=== PATIENT | female | born 1930 | race African-American/Black ===

== ENCOUNTER 2018-12-10 21:07 | Observation (INO) ==
--- NOTE | 2018-12-10 21:50 | PROVIDER DOCUMENTATION ---
This chart was entered by Ivonne Stephens Scribe, acting as scribe for Terrell Adames MD. HPI-Musculoskeletal Pain/Inj - GENERAL Chief Complaint: Fall Stated Complaint: hip leg pain Time Seen by Provider: 12/10/18 21:32 - HX OF PRESENT ILLNESS-MUSKULOSKELTAL Nature of Presenting Problem: pt is 88/F presenting to ED w/ pain in L hip and leg after fall earlier. EMS brought pt in and sts that she has frequent falls and that she lives alone. Pt reports that she just loses her balance, that she does not have any other reason for falling. Pt has hx of HTN Quality of Pain: reports: aching Severity in ED: mild Onset/Duration: this morning Timing: still present Modifying Factors: improves with: nothing Any recent injury?: Yes (pt has fallen on several occasions in home) Locality of Occurance: Home Similar Symptoms Previously?: Yes Recently seen or treated by another doctor?: No - FALL INJURY Location of Pain/Injury: reports: lower extremity (L hip and leg) Pain Radiation: reports: no radiation Reason for Fall: reports: lost balance Symptoms prior to fall:: reports: none Loss of Consciousness: no loss of consciousness Injury Associated Symptoms: denies: back/neck pain, chest pain, dizziness, muscle aches, nausea, vomiting - LOWER EXTREMITY PAIN/INJURY Lower Extremities Pain: hip: left, leg: left Review of Systems - Adult - REVIEW OF SYSTEMS - ADULT Constitutional: reports: no symptoms reported. denies: chills, fever Eyes: reports: no symptoms reported Ears, Nose, Mouth & Throat: reports: no symptoms reported Cardiovascular: reports: no symptoms reported. denies: chest pain, edema Respiratory: reports: no symptoms reported. denies: cough, shortness of breath Gastrointestinal: reports: no symptoms reported. denies: abdominal pain, nausea , vomiting Genitourinary: reports: no symptoms reported Musculoskeletal: reports: no symptoms reported. denies: back pain, joint pain, joint swelling, muscle weakness, neck pain Integumentary: reports: no symptoms reported Neurological: reports: no symptoms reported. denies: dizziness/vertigo, headache/migraines Psychiatric: reports: no symptoms reported Endocrine: reports: no symptoms reported Hematologic/Lymphatic: reports: no symptoms reported Allergic/Immunologic: reports: no symptoms reported All Other Systems: Reviewed and Negative Past History - Adult - PAST MEDICAL HISTORY-ADULT Review of Records: reports: Old Records Reviewed, Nursing Assessment Review, Medications Reviewed, Social history reviewed & non-contributory. Major Childhood Illnesses: reports: denies history Cardiovascular: reports: HTN, hyperlipidemia Respiratory: reports: denies history Gastrointestinal: reports: denies history Obstetrical/Gynecological: reports: denies history Genitourinary: reports: denies history Musculoskeletal: reports: denies history Neurological: reports: denies history Psychiatric: reports: denies history Endocrine/Immune: reports: denies history Other Conditions: reports: denies history - PRIOR SURGERIES/PROCEDURES Surgical/Procedure History: reports: other (lymph node removal right breast) - IMMUNIZATION STATUS Childhood Immunizations: See Nurse Assessment Flu Vaccine: See Nurse Assessment - FAMILY HISTORY Family History: reviewed, not pertinent - SOCIAL HISTORY Smoking: denies, non-smoker Substance Use: none/never Alcohol Use Frequency: never Living Situation: alone Physical Exam-Injury Related - Physical Exam-Injury Related Initial Vital Signs Reviewed: Yes General Appearance: appears well, alert, no apparent distress Eyes: PERRL/EOMI Neck: non-tender, full range of motion, supple Respiratory: chest non-tender, lungs clear, normal breath sounds Cardiovascular: normal peripheral pulses, regular rate, rhythm, no edema Abdominal Exam: normal bowel sounds, non tender, soft Extremity: normal range of motion, normal gait, normal inspection, no pedal edema, no calf tenderness, normal capillary refill, tenderness (tenderness upon palpation in L hip and knee area) Integumentary: normal color, warm/dry, blanching Neurologic: grossly normal Psych/Mental Status: normal mood/affect, normal thought content, normal thought process, oriented x 3 - Glascow Coma Score Best Eye Response (Rj): (4) open spontaneously Best Verbal Response ([place]): (5) oriented Best Motor Response (Rj): (6) obeys commands Rj Total: 15 Progress - PLAN OF CARE/RESULTS Progress/Plan/Lab Results: Vital Signs - 8 hr 12/10/18 21:07 12/10/18 21:12 Temperature 97.6 F 97.6 F Pulse Rate 83 89 Respiratory Rate 20 20 Blood Pressure 189/91 189/91 O2 Sat by Pulse Oximetry 93 L Laboratory Results - last 24 hr 12/10/18 12/10/18 12/10/18 21:52 22:10 22:10 WBC 10.98 H RBC 5.11 Hgb 15.0 Hct 46.6 MCV 91.2 MCH 29.4 MCHC 32.2 L RDW Std Deviation 14.6 H Plt Count 273 MPV 11.6 H Immature Gran % (Auto) 0.3 Neut % (Auto) 84.9 H Lymph % (Auto) 7.3 L [place] % (Auto) 5.8 Eos % (Auto) 1.3 Baso % (Auto) 0.4 Immature Gran # (Auto) 0.03 Neut # (Auto) 9.33 H Lymph # (Auto) 0.80 L [place] # (Auto) 0.64 H Eos # (Auto) 0.14 Baso # (Auto) 0.04 Sodium Potassium Chloride Carbon Dioxide Anion Gap BUN Creatinine Estimated GFR/1.73 m2 BUN/Creatinine Ratio Glucose Calculated Osmolality Calcium Total Bilirubin AST ALT Alkaline Phosphatase Creatine Kinase 2182 H Creatine Kinase Index 0.6 CK-MB (CK-2) 13.11 H Total Protein Albumin Globulin Albumin/Globulin Ratio Urine Source CATH Urine Color YELLOW Urine Clarity CLEAR Urine pH 5.0 Ur Specific [place] 1.020 Urine Protein 3+(500 mg/dL) A Urine Ketones TRACE Urine Blood 2+ A Urine Nitrite NEGATIVE Urine Bilirubin NEGATIVE Urine Urobilinogen NORMAL Urine Microscopic RBC 10-20 A Urine WBC NEGATIVE Urine Microscopic WBC <10 Ur Epithelial Cells <10 Urine Bacteria 1+ Urine Glucose NEGATIVE 12/10/18 22:10 WBC RBC Hgb Hct MCV MCH MCHC RDW Std Deviation Plt Count MPV Immature Gran % (Auto) Neut % (Auto) Lymph % (Auto) [place] % (Auto) Eos % (Auto) Baso % (Auto) Immature Gran # (Auto) Neut # (Auto) Lymph # (Auto) [place] # (Auto) Eos # (Auto) Baso # (Auto) Sodium 144 Potassium 3.3 L Chloride 102 Carbon Dioxide 29 Anion Gap 13 BUN 30 H Creatinine 1.3 H Estimated GFR/1.73 m2 39 BUN/Creatinine Ratio 23 Glucose 119 H Calculated Osmolality 294 Calcium 9.3 Total Bilirubin 0.80 AST 70 H ALT 21 Alkaline Phosphatase 106 H Creatine Kinase Creatine Kinase Index CK-MB (CK-2) Total Protein 7.4 Albumin 3.3 L Globulin 4.0 Albumin/Globulin Ratio 1.0 Urine Source Urine Color Urine Clarity Urine pH Ur Specific [place] Urine Protein Urine Ketones Urine Blood Urine Nitrite Urine Bilirubin Urine Urobilinogen Urine Microscopic RBC Urine WBC Urine Microscopic WBC Ur Epithelial Cells Urine Bacteria Urine Glucose Orders Category Date Time Status Rosa Cath Insertion ORDERED Care 12/10/18 21:56 Active FEMUR MIN 2 VIEWS LEFT [RAD] Stat Exams 12/10/18 21:33 Taken KNEE 3 VIEWS LEFT [RAD] Stat Exams 12/10/18 21:34 Taken LOWER LEG-LEFT [RAD] Stat Exams 12/10/18 21:34 Taken XRAY PELVIS W/HIP 2-3VW LT [RAD] Stat Exams 12/10/18 21:32 Taken CBC WITH ELECTRONIC DIFF [HEME] Stat Lab 12/10/18 22:10 Completed CK PROFILE [SP CHEM] Stat Lab 12/10/18 22:10 Completed CMP [COMPREHENSIVE METABOLIC PANEL] [CHEM] Stat Lab 12/10/18 22:[address] W/POSS RFLX CULT [URINALYSIS] Stat Lab 12/10/18 21:52 Completed 0.9% Sodium Chloride Inj [Ns] 1,000 ml Med 12/10/18 23:43 Active IV 125 mls/hr EKG [EKG] Stat Ther 12/10/18 21:57 Draft Result Diagrams: 12/10/18 22:10 12/10/18 22:10 - EKG 1 Time of EKG reading by physician:: 21:57 EKG Read and Signed by:: Terrell Adames EKG Interpretation (*Must complete 3 of following elements*): Abnormal (Normal sinus rhythm, Left axis deviation, right bundle branch block, Voltage criteria for left ventricular hypertrophy. Inferior infarct, age undetermined. Abnormal ECG) Rate: 84 Rhythm: sinus QRS: normal NH Interval: normal - XRAY 1 XRAY: Left XRAY Study: Pelvis, Hip, Femur, Knee, Tibia/Fibula XRAY Interpretation: NO FRACTURES - CONSULTS/PCP/HOSPITALIST Notification #1 *Consult/PCP/Hospitalist*: Time Discussed: 01:30 Consult Disposition: Admit Departure - Departure Date of Disposition Decision: 12/11/18 Time of Disposition Decision: 01:33 DIAGNOSIS: Rhabdomyolysis Qualifiers: Rhabdomyolysis type: traumatic Encounter type: initial encounter Qualified Code (s): T79.6XXA - Traumatic ischemia of muscle, initial encounter Disposition: ADMITTED INPATIENT 09 Certified Medical Emergency: Emergent Condition: Stable Referrals and Follow-Ups: Cm Martinez MD [Primary Care Provider] - - Critical Care Note This patient required my direct & personal management of CC.: No Attestation - Physician/ JN Attestation Patient care was provided by Advanced Practice Provider:: No The physician spent face to face time with patient:: Yes Advanced Practice Provider documentation review:: Supervising physician onsite and consulted in the evaluation and care of this patient. The physician did have a face to face encounter with the patient. This chart was documented by the indicated scribe, (Ivonne Stephens, Nathanael) and accurately reflects the services I performed and decisions made by me, Terrell Adames MD, as attested by the provider's signature.
[2018-12-10 22:21] LABS: BASO# 0.04 X1000 (0.0-0.2); BASO% 0.4 % (0.0-0.8); EOS# 0.14 X1000 (0.0-0.7); EOS% 1.3 % (0.0-10.0); HEMATOCRIT 46.6 % (37.0-47.0); IMM GRAN# 0.03 X1000 (0.0-0.04); IMM GRAN% 0.3 % (0.0-0.5); LYMPH% 7.3 % (20.5-51.1); MCH 29.4 PG (27-31); MCHC 32.2 g/dL (33-37); MCV 91.2 FL (81-99); MONO# 0.64 X1000 (0.11-0.59); MONO% 5.8 % (1.7-9.3); MPV 11.6 FL (7.4-10.4); NEUT# 9.33 X1000 (1.4-6.5); NEUT% 84.9 % (42.2-75.2); PLT 273 X1000 (130-400); RBC 5.11 XMIL (4.2-5.4); RDW 14.6 % (11.5-14.5); WBC 10.98 X1000 (4.8-10.8)
[2018-12-10 22:30] LABS: BILIRUBIN URINE NEGATIVE (NEGATIVE); BLOOD URINE 2+ (NEGATIVE); CLARITY CLEAR (CLEAR); COLOR YELLOW; GLUCOSE URINE NEGATIVE (NEGATIVE); KETONE URINE TRACE mg/dL (NEGATIVE); LEUKOCYTES URINE NEGATIVE (NEGATIVE); NITRITE URINE NEGATIVE (NEGATIVE); URINE EPITHELIAL CELLS <10 /HPF (<10); URINE SOURCE CATH; URINE WBC <10 /HPF (<10); UROBILINOGEN URINE NORMAL
[2018-12-10 22:31] LABS: URINE BACTERIA 1+ /HFP
[2018-12-10 22:50] LABS: ALBUMIN 3.3 g/dL (3.5-5.0); CALCIUM 9.3 mg/dL (8.8-10.2); CREATININE 1.3 mg/dL (0.5-0.9); POTASSIUM 3.3 mmol/L (3.5-5.1); TOTAL BILIRUBIN 0.8 mg/dL (0.20-1.00); TOTAL PROTEIN 7.4 g/dL (6.3-8.3)
[2018-12-10 23:27] LABS: CK INDEX 0.6 (0.0-2.5); CK-MB 13.11 ng/mL (0.0-5.0)
[2018-12-10] MEDS ORDERED: NS 1,000 ML IV ONE (23:43)
--- NOTE | 2018-12-11 00:28 | EKG Report ---
Test Performed on : 12/10/2018 9:57:41 PM Test Reason : falling Blood Pressure : / mmHG Vent. Rate : 084 BPM Atrial Rate : 084 BPM P-R Int : 144 ms QRS Dur : 126 ms QT Int : 456 ms P-R-T Axes : 085 -71 040 degrees QTc Int : 538 ms Normal sinus rhythm. Left axis deviation Right bundle branch block Voltage criteria for left ventricular hypertrophy Inferior infarct , age undetermined Abnormal ECG When compared with ECG of 16-DEC-2016 01:45, Right bundle branch block is now present Unconfirmed Result
[2018-12-11] MEDS ORDERED: SODIUM BICARBONATE 8.4% IV PUSH ONE (01:34)
[2018-12-11] MEDS ORDERED: NS IV ONE (01:43)
[2018-12-11] MEDS ORDERED: SODIUM BICARBONATE IV ONE (01:43)
[2018-12-11] MEDS ORDERED: SODIUM BICARBONATE 8.4% ONE (02:08)
[2018-12-11] MEDS ORDERED: NS 1,000 ML ONE (02:09)
--- NOTE | 2018-12-11 07:54 | Diag Imaging Result Doc PS360 ---
FEMUR MIN 2 VIEWS LEFT - 12/10/2018 INDICATION: left leg pain TECHNIQUE: Four views COMPARISON: None FINDINGS: Bones are intact and normally aligned. Joint spaces and soft tissues are clear. There is significant peripheral vascular disease namely of the popliteal artery. IMPRESSION: No acute disease. Electronically signed by Franky Day 12/11/2018 7:52 AM
--- NOTE | 2018-12-11 07:55 | Diag Imaging Result Doc PS360 ---
XRAY PELVIS W/HIP 2-3VW LT - 12/10/2018 INDICATION: left hip pain TECHNIQUE: Three views COMPARISON: None FINDINGS: Bones are intact and normally aligned. Joint spaces and soft tissues are clear. IMPRESSION: Negative exam. Electronically signed by Franky Day 12/11/2018 7:52 AM
--- NOTE | 2018-12-11 07:56 | Diag Imaging Result Doc PS360 ---
LOWER LEG-LEFT - 12/10/2018 INDICATION: fall,leg pain TECHNIQUE: Two views COMPARISON: None FINDINGS: Bones are intact and normally aligned. Joint spaces and soft tissues are clear. There is some mild calcified peripheral arterial disease of the lower leg. IMPRESSION: No acute disease. Electronically signed by Franky Day 12/11/2018 7:54 AM
--- NOTE | 2018-12-11 07:56 | Diag Imaging Result Doc PS360 ---
KNEE 3 VIEWS LEFT - 12/10/2018 INDICATION: left knee pain TECHNIQUE: Three views COMPARISON: None FINDINGS: Bones are intact and normally aligned. 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 There is a moderate nonspecific joint effusion. There is advanced vascular disease of the popliteal artery and the arteries of the lower leg. This indicates peripheral artery disease. IMPRESSION: Nonspecific findings. Electronically signed by Franky Day 12/11/2018 7:53 AM
[2018-12-11] MEDS ORDERED: KLOR-CON PO SCH (09:30)
[2018-12-11] MEDS ORDERED: ARICEPT PO SCH (09:30)
[2018-12-11] MEDS ORDERED: COREG PO SCH (09:30)
[2018-12-11] MEDS ORDERED: PRINIVIL PO SCH (09:30)
[2018-12-11] MEDS: NORCO-5 PO PRN (10:14)
[2018-12-11] MEDS: ASPIRIN PO SCH (11:36)
[2018-12-11] MEDS: PRILOSEC PO SCH (11:37)
[2018-12-11 11:41] LABS: ALBUMIN 2.8 g/dL (3.5-5.0); CALCIUM 8.6 mg/dL (8.8-10.2); CREATININE 1.4 mg/dL (0.5-0.9); POTASSIUM 3.3 mmol/L (3.5-5.1); TOTAL BILIRUBIN 0.7 mg/dL (0.20-1.00); TOTAL PROTEIN 5.6 g/dL (6.3-8.3)
[2018-12-11 12:40] LABS: CK INDEX 0.5 (0.0-2.5); CK-MB 6.97 ng/mL (0.0-5.0)
--- NOTE | 2018-12-11 17:53 | HISTORY AND PHYSICAL ---
HISTORY OF PRESENT ILLNESS: This is a patient of mine who presented to the emergency room with a fall and vague hip and leg pain. She presented to the ED after she had fallen, and she claimed she had been down for two days. She was brought into the emergency room and said that she was unable to get up. Neighbors could not hear her. She claims that she just loses her balance and falls. She has a past history of hypertension. Denies any stroke or any significant heart condition. She is just aching in her body. She claims she has fallen several times at her home and has not seen her doctor about this. In the ER, they worked her up. She was afebrile. Pulse was in the 80s. Respiratory rate 20 and blood pressure 189/91. Her white count was 10,980, hematocrit 46 and platelet count was 273. She had a serum creatine of 2,182 with an MB band of 13.1. Index was low. Urinalysis: 1.020 specific gravity, 3+ protein, 2+ blood, 10-20 red blood cells, 1+ bacteria. Her BUN was 30, creatinine 1.3, sodium 144, potassium 3.3 , chloride 102, CO2 29, anion gap 13, glucose 119, calcium 93, total bilirubin 0.8, AST high at 70, ALT 21, alk phos 106, total protein 71, and albumin 3.3. She had an EKG showing a normal sinus rhythm. LAD. Right bundle. Voltage criteria for left ventricular hypertrophy. Possible inferior infarct. X- rays of the pelvis, hip, femur, knee, and tibia showed no fracture. She was admitted with a diagnosis of frequent falls and elevated CPK. ALLERGIES: penicillin. PAST MEDICAL HISTORY: Shows that she denies any significant problem other than she has had a history of hypertension and dyslipidemia. REVIEW OF SYSTEMS: No fever or chills. No weight gain or weight loss. No visual changes. ENT: Negative. Cardiovascular: Denies chest pain, edema or palpitations. Respiratory: Denies any shortness of breath, PND or orthopnea. No cough. GI: No nausea, vomiting or diarrhea, constipation, bloody, black or tarry stools. : No dysuria, hematuria, polyuria, or pyuria. Musculoskeletal: She has some aches in her body from degenerative arthritis in her knees and back. Skin: No rash or lesions identified. Neurological: She has had no dizziness, headache, or migraines. Psychiatric: Negative. Endo: No polyuria or polydipsia. Hematological: No bleeding disorder. No history of asthma. She had a lymph node removal from her right breast area in the past. SOCIAL HISTORY: She is a nonsmoker. No substance abuse. Never used alcohol. PHYSICAL EXAMINATION: HEENT: Head was normocephalic. Pupils are equal, round and reactive to light. EOMs intact. SC clear. Fundi benign. Nares patent. Oropharynx negative. NECK: Supple with bounding carotids throughout. No thyromegaly or lymphadenopathy. CHEST: Clear with bilateral breath sounds. No consolidated features. CARDIOVASCULAR: Regular rate and rhythm. No murmurs, gallops, clicks or rubs. ABDOMEN: Soft and obese. No hepatosplenomegaly. No CVA tenderness. EXTREMITIES: Negative for cyanosis, clubbing or edema. SKIN: Clear. No lesions. NEUROLOGICAL: Symmetrical. She can squeeze her hands, raise her arms, hold her legs up and bend her knees. No facial issues. ADMITTING DIAGNOSES: 1. Frequent falls. 2. Hypertension. 3. History of dyslipidemia. She had some additional reports. There was no significant pathology. Vital signs, once she got into the hospital showed that her blood pressure dropped to 140/48, afebrile, pulse 62, and respiratory rate 20. We will watch her and see about what is the deal with her losing balance and take it from there. cc: Cm Martinez MD MTDD
[2018-12-11] MEDS: LIPITOR PO SCH (22:17)
[2018-12-12] MEDS: PRILOSEC PO SCH ×2 (05:34→06:38)
[2018-12-12 07:13] LABS: ALBUMIN 2.5 g/dL (3.5-5.0); CALCIUM 8.2 mg/dL (8.8-10.2); CREATININE 1.4 mg/dL (0.5-0.9); POTASSIUM 3.3 mmol/L (3.5-5.1); TOTAL BILIRUBIN 0.5 mg/dL (0.20-1.00); TOTAL PROTEIN 5.9 g/dL (6.3-8.3)
[2018-12-12] MEDS ORDERED: FLU VACCINE IM ONE (09:00)
[2018-12-12] MEDS: PRINIVIL PO SCH (09:27)
[2018-12-12] MEDS: ASPIRIN PO SCH (09:28)
[2018-12-12 12:03] LABS: CK INDEX 0.6 (0.0-2.5); CK-MB 6.54 ng/mL (0.0-5.0)
[2018-12-12] MEDS ORDERED: TYLENOL PO ONE (19:54)
[2018-12-12] MEDS: LIPITOR PO SCH (20:31)
[2018-12-12] MEDS: LOVENOX SUBQ SCH (20:39)
[2018-12-13] MEDS: NS 1,000 ML IV SCH ×4 (01:26→20:21)
[2018-12-13] MEDS: PRILOSEC PO SCH ×2 (05:54→06:55)
[2018-12-13] MEDS: ASPIRIN PO SCH (09:12)
[2018-12-13] MEDS: PRINIVIL PO SCH (09:12)
--- NOTE | 2018-12-13 10:46 | Diag Imaging Result Doc PS360 ---
CT HEAD W/O CONTRAST - 12/13/2018 INDICATION: confusion COMPARISON: None FINDINGS: There is moderate cerebral atrophy diffusely. There is moderate periventricular white matter chronic microvascular disease. There is severe vascular disease with calcification of the vertebrobasilar and carotid artery systems. No intracranial mass or hemorrhage. There is severe opacification of the right middle ear and mastoid air cells. Other sinuses are clear. IMPRESSION: 1. Severe right otomastoiditis. 2. Cerebral atrophy and microvascular disease. This exam was performed using automated exposure control, adjustment of mA or kV according to patient size, and/or use of iterative reconstruction technique Electronically signed by Franky Day 12/13/2018 10:44 AM
[2018-12-13] MEDS: NORCO-5 PO PRN (14:48)
[2018-12-13 15:37] LABS: BASO# 0.03 X1000 (0.0-0.2); BASO% 0.5 % (0.0-0.8); EOS% 6.4 % (0.0-10.0); HEMOGLOBIN 12.6 g/dL (12.0-16.0); IMM GRAN# 0.02 X1000 (0.0-0.04); IMM GRAN% 0.3 % (0.0-0.5); LYMPH# 0.86 X1000 (1.2-3.4); LYMPH% 13.7 % (20.5-51.1); MCH 29.3 PG (27-31); MCHC 30.7 g/dL (33-37); MCV 95.3 FL (81-99); MONO# 0.43 X1000 (0.11-0.59); MONO% 6.8 % (1.7-9.3); NEUT# 4.55 X1000 (1.4-6.5); NEUT% 72.3 % (42.2-75.2); PLT 215 X1000 (130-400); RDW 14.1 % (11.5-14.5); WBC 6.29 X1000 (4.8-10.8)
[2018-12-13 15:55] LABS: ALBUMIN 2.7 g/dL (3.5-5.0); CALCIUM 8.4 mg/dL (8.8-10.2); CREATININE 1.3 mg/dL (0.5-0.9); POTASSIUM 3.6 mmol/L (3.5-5.1); TOTAL BILIRUBIN 0.3 mg/dL (0.20-1.00); TOTAL PROTEIN 6.2 g/dL (6.3-8.3)
[2018-12-13] MEDS: LOVENOX SUBQ SCH (20:22)
[2018-12-13] MEDS: LIPITOR PO SCH (20:23)
[2018-12-14] MEDS: NS 1,000 ML IV SCH ×2 (04:18→14:18)
[2018-12-14] MEDS: PRILOSEC PO SCH (06:03)
[2018-12-14] MEDS: PRINIVIL PO SCH (08:58)
[2018-12-14] MEDS: ASPIRIN PO SCH (08:58)
--- NOTE | 2018-12-14 09:36 | PROGRESS NOTE ---
DATE: 12/12/2018 SUBJECTIVE: The patient is an 88-year-old female with hypertension that has lately been having frequent falls, unable to get up off of the floor, was admitted to evaluate her fall situation. OBJECTIVE: Vital signs: Temperature is 97.3, pulse 67, respiratory rate 18, BP 155/51, O2 sat 99 on 2 L. LABORATORY DATA: She had some lab done following up her elevated CPKs. Her sodium was 149, potassium was 3.3, chloride 106, CO2 of 29, BUN 32, creatinine 1.4. Estimated GFR is 35. Glucose was 108, calcium 8.6. Total bilirubin 0.7, AST 55, ALT 18. CK was 1363.5 index, 6.97 MB band. ASSESSMENT AND PLAN: She is having problems straightening her legs out or bending her legs--they both seem to hurt. She may be, perhaps, a bit weak on her right side, although she can lift her arms against gravity, good commercial lending vice president, same with her legs, but with her legs she has some difficulty lifting her heel off the sheet. She otherwise is not having any significant problems. cc: Cm Martinez MD
[2018-12-14] MEDS: LEVAQUIN PO SCH (10:45)
--- NOTE | 2018-12-14 10:50 | PROGRESS NOTE ---
DATE: 12/14/2018 SUBJECTIVE: The patient is still lying in bed as she was the previous day. OBJECTIVE: Vital signs: 8 a.m. temp 97.9, pulse 54, respiratory rate 20, BP 169/55, O2 sat 100% on 2 L. LABORATORY DATA: Her electrolytes are basically normal. CO2 is 28, potassium is 3.6. Her BUN is 23, creatinine 1.3. GFR is a little better at 39. Her blood sugar is 132 random. LFTs are normal. Albumin was 2.7. Her CBC: Hematocrit was 41, platelet count was 215, white count was 6.29. She had a CT of the head done on 12/13, shows diffuse cerebral atrophy, moderate periventricular white matter. There is severe calcification in the vertebrobasilar and carotid systems, no intracranial masses or hemorrhages. There is severe opacification in the right middle ear and mastoid cells; otherwise, the sinuses are clear. IMPRESSION: She continues to have difficulty straightening her arms and legs out. Her muscles are not particularly sore--it is just actively straightening them out. She still moves them pretty much equally, and perhaps this otitis media is causing her to be dizzy. It may, in fact, be a mastoiditis, so she may need prolonged antibiotic therapy. Will talk to ENT. cc: Cm Martinez MD
[2018-12-14] MEDS: NORCO-5 PO PRN (15:56)
[2018-12-14] MEDS: LOVENOX SUBQ SCH (19:51)
--- NOTE | 2018-12-14 20:33 | Diag Imaging Result Doc PS360 ---
CHEST-PORTABLE - 12/14/2018 INDICATION: SNF requirement COMPARISON: 12/15/2016 FINDINGS: There is cardiomegaly and pulmonary vascular congestion. There may be some interstitial pulmonary edema. No dense infiltrates. No pneumothorax or pleural effusion. IMPRESSION: Cardiomegaly and pulmonary vascular congestion. Possible mild pulmonary edema. Electronically signed by Franky Day 12/14/2018 8:30 PM
[2018-12-14] MEDS ORDERED: GEODON IM ONE (21:26)
[2018-12-14] MEDS ORDERED: STERILE WATER INJ. INJ ONE (21:26)
[2018-12-14] MEDS: LIPITOR PO SCH (21:37)
[2018-12-14 22:13] LABS: BASO# 0.03 X1000 (0.0-0.2); BASO% 0.4 % (0.0-0.8); EOS# 0.44 X1000 (0.0-0.7); EOS% 6.4 % (0.0-10.0); HEMATOCRIT 43.5 % (37.0-47.0); HEMOGLOBIN 13.7 g/dL (12.0-16.0); IMM GRAN# 0.02 X1000 (0.0-0.04); IMM GRAN% 0.3 % (0.0-0.5); LYMPH# 1.33 X1000 (1.2-3.4); LYMPH% 19.3 % (20.5-51.1); MCH 29.6 PG (27-31); MCHC 31.5 g/dL (33-37); MONO# 0.58 X1000 (0.11-0.59); MONO% 8.4 % (1.7-9.3); MPV 11.5 FL (7.4-10.4); NEUT# 4.49 X1000 (1.4-6.5); NEUT% 65.2 % (42.2-75.2); PLT 221 X1000 (130-400); RBC 4.63 XMIL (4.2-5.4); RDW 13.7 % (11.5-14.5); WBC 6.89 X1000 (4.8-10.8)
[2018-12-14 22:57] LABS: ALBUMIN 3.3 g/dL (3.5-5.0); CALCIUM 8.5 mg/dL (8.8-10.2); CREATININE 1.1 mg/dL (0.5-0.9); POTASSIUM 3.3 mmol/L (3.5-5.1); TOTAL BILIRUBIN 0.5 mg/dL (0.20-1.00); TOTAL PROTEIN 6.4 g/dL (6.3-8.3)
[2018-12-14 23:27] LABS: CK INDEX 0.9 (0.0-2.5); CK-MB 3.72 ng/mL (0.0-5.0)
[2018-12-15] MEDS: NS 1,000 ML IV SCH ×3 (00:48→18:22)
[2018-12-15] MEDS: PRILOSEC PO SCH (06:04)
--- NOTE | 2018-12-15 07:15 | PROGRESS NOTE ---
DATE: 12/14/2018 88-year-old female, regular patient of mine, who has been having some issues with balance and frequent fallings. Today, we are waiting placement. Lab has been drawn today includes hematocrit of 43.5, white count of 6,890, platelet count of 221,000. Sodium is 147, potassium 3.3, chloride 106, CO2 28, BUN 14, creatinine 1.1. GFR 47. BUN and creatinine ratio of 1. Blood sugar 110. Calcium 8.5. Total bilirubin 0.5. AST 31, ALT 20, alkaline phosphatase 130. CK now down to 399 from several thousands. MB band is 3.72. Troponin is 0.013. She had a chest x-ray which showed cardiomegaly with pulmonary vascular congestion. There may be some interstitial pulmonary edema. No dense infiltrates. No pneumothorax or pleural effusion. PHYSICAL EXAMINATION: VITAL SIGNS: Temperature 98 degrees, pulse 64, respiratory rate 20, BP 178/43, O2 sat was 100%. GENERAL: She became a little bit cantankerous and was given some meds and she finally settled down and went to sleep. cc: Cm Martinez MD
[2018-12-15] MEDS: ASPIRIN PO SCH (09:51)
[2018-12-15] MEDS: PRINIVIL PO SCH (09:51)
[2018-12-15] MEDS: NORVASC PO SCH (09:53)
[2018-12-15] MEDS: HYDROCHLOROTHIAZIDE PO SCH (10:25)
--- NOTE | 2018-12-15 14:28 | PROGRESS NOTE ---
DATE: 12/15/2018 An 88-year-old female who is hospitalized for falling about in her apartment where she lives alone. She has one daughter that has other things to do and other priorities than to stay with her mother. The patient today is very attentive, but she is easy to anger if we mention anything about her memory. She is sitting up in a chair. She moves her arms and moves her legs fine. She and the family are interested in pursuing some physical therapy. PHYSICAL EXAMINATION: VITAL SIGNS: Temperature 98, pulse was 55, respiratory rate 16, blood pressure 172/50, O2 saturation was 100%. LUNGS: Clear. HEART: Regular rhythm and rate. ABDOMEN: Soft. EXTREMITIES: Negative. NEUROLOGIC: No asymmetric findings. LABORATORY DATA: CBC is essentially normal, white cell count 6,890 with a relatively normal differential, hematocrit of 43.5, relatively stable, normochromic, normocytic. Her sodium was 147, potassium 3.3, chloride 106, CO2 28, BUN 14, creatinine 1.1, GFR estimated at 47, BUN/creatinine ratio 13, glucose 110. CK is down to 399. Troponin is 0.013. Total protein is 3.3. I was discussing with her daughter the possibility of her doing a 21-day rehab and see if she has one last chance to stay at her house, if she does improve with her rehab. She was very interested in it and participated in it, but was quick to anger. Hopefully we can get her a place and give her a shot. cc: Cm Martinez MD
[2018-12-15] MEDS: LOVENOX SUBQ SCH (21:10)
[2018-12-15] MEDS: LIPITOR PO SCH (21:10)
[2018-12-16] MEDS ORDERED: CATAPRES PO PRN (00:20)
[2018-12-16] MEDS ORDERED: NS 1,000 ML IV SCH (00:30)
[2018-12-16] MEDS: PRILOSEC PO SCH (06:02)
[2018-12-16] MEDS: LEVAQUIN PO SCH ×2 (08:36→14:38)
[2018-12-16] MEDS: NORVASC PO SCH (08:36)
[2018-12-16] MEDS: PRINIVIL PO SCH (08:36)
[2018-12-16] MEDS: HYDROCHLOROTHIAZIDE PO SCH (08:36)
[2018-12-16] MEDS: ASPIRIN PO SCH (08:36)
[2018-12-16 16:27] VITALS: BP 162/47
--- NOTE | 2018-12-16 16:29 | DISCHARGE SUMMARY ---
ADMISSION DATE: 12/11/2018 DISCHARGE DATE: HISTORY OF PRESENT ILLNESS: Ms. Proctor is an 88-year-old female that I have been seeing in my office off and on over the years. She presented to the emergency room on this particular occasion after multiple falls and vague hip and leg pain associated with trying to get up. She apparently had been on the ground more or less 2 days until she was discovered and brought to the ER. She has a background history of hypertension, unassociated with any significant PARTS CATALOGUER component. She has fallen multiple times and never sought medical help because she was usually able to get up. She presented to the ER where her blood pressure was 189/91, pulse was 80. Her white count was 10,980, hematocrit was 46, platelet count 273,000. CPK was 2182 with a 13.1 MB band, low index. Urinalysis with 1.020 specific gravity, 3+ protein, 2+ blood, 10 to 20 RBCs, 1+ bacteria. Creatinine was 1.3, sodium 144, potassium 3.3, chloride 102, CO2 was 29, glucose 119, calcium 9.3. Total bilirubin was 0.8, AST was 70, ALT was 21, alkaline phosphatase 106, total protein 7.1, albumin 3.3. Her EKG showed a normal sinus rhythm, LAD, right bundle branch block configuration, voltage for left ventricular hypertrophy, possible inferior infarct. X-ray of the pelvis, hip, femur, knee, and tibia showed no fracture. She was admitted for frequent falls. ALLERGIES: She is allergic to penicillin. PAST MEDICAL HISTORY: She has a history of hypertension and dyslipidemia. In the hospital, her imaging reports were as described. 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 There was severe opacification of the right middle ear and mastoid air cells which we will treat as an outpatient. The patient seemed to be her normal self, although she is a little bit demented and had some history of some issues with hallucinations, but these were only under duress normally, but during the hospitalization she had one episode of that; otherwise, she was normal and interactive, but she is slight touch demented. DIAGNOSTIC DATA: Her CBCs were normal. Her chemistries were for the most part normal. Her CPK and troponin levels dropped with the hospital stay. Urinalysis was 3+ protein, 2+ blood, 10 to 20 RBCs, 1+ bacteria, otherwise negative. During the hospital stay, she was on Levaquin 750 q.48 hours which we will continue to do as an outpatient. The 750 q.48, and I would do it for a period of 2 weeks and then reevaluate her mastoiditis. She is to be discharged on hydrochlorothiazide 12.5 daily, and she is on clonidine 0.1 p.o. t.i.d. p.r.n. blood pressures greater than 150/90. Continue her atorvastatin 40 daily, 81 mg daily, amlodipine 5 daily, and lisinopril 40 daily. DISCHARGE DIAGNOSES: 1. Frequent falls secondary to chronic joint issues. 2. Hypertension. 3. Dyslipidemia. 4. 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 cc: Cm Martinez MD
== END 2018-12-16 18:00 ==
LOC: P.ED 21:07 → INTOOBSV 12-11 02:24 → P.MEDSURG 12-11 02:24
PROVIDERS: ADMIT Internal Medicine; ATTEND Internal Medicine
CPT/HCPCS: 51702; 70450; 71010; 71045; 73502; 73552; 73562; 73590; 80053; 81001; 82550; 82553; 84484; 84550; 85025; 85651; 93005; 94761; 96361; 96365; 96375; 97162; 97530; 99285; A9270; J1650; J3486; J7030

== ENCOUNTER 2019-11-21 17:02 | Inpatient (IN) ==
[2019-11-21] MEDS ORDERED: ASPIRIN PO ONE (17:11)
[2019-11-21] MEDS ORDERED: ZOFRAN IV ONE (17:13)
[2019-11-21] MEDS ORDERED: NS 1,000 ML IV ONE (17:13)
[2019-11-21] MEDS ORDERED: MORPHINE IV ONE (17:13)
[2019-11-21] MEDS ORDERED: LABETALOL IV ONE (17:13)
[2019-11-21] MEDS ORDERED: NITROGLYCERIN TOP ONE (17:15)
[2019-11-21 17:36] LABS: BASO# 0.03 X1000 (0.0-0.2); BASO% 0.5 % (0.0-0.8); EOS# 0.22 X1000 (0.0-0.7); EOS% 3.4 % (0.0-10.0); HEMATOCRIT 47.9 % (37.0-47.0); HEMOGLOBIN 15.3 g/dL (12.0-16.0); IMM GRAN# 0.02 X1000 (0.0-0.04); IMM GRAN% 0.3 % (0.0-0.5); LYMPH# 1.82 X1000 (1.2-3.4); LYMPH% 28.5 % (20.5-51.1); MCH 29.3 PG (27-31); MCHC 31.9 g/dL (33-37); MCV 91.6 FL (81-99); MONO% 7.8 % (1.7-9.3); NEUT# 3.79 X1000 (1.4-6.5); NEUT% 59.5 % (42.2-75.2); PLT 268 X1000 (130-400); RBC 5.23 XMIL (4.2-5.4); RDW 14.5 % (11.5-14.5); WBC 6.38 X1000 (4.8-10.8)
[2019-11-21 17:38] LABS: URINE SOURCE CATH
[2019-11-21 17:39] LABS: BILIRUBIN URINE NEGATIVE (NEGATIVE); BLOOD URINE TRACE (NEGATIVE); COLOR YELLOW; GLUCOSE URINE NEGATIVE (NEGATIVE); KETONE URINE NEGATIVE (NEGATIVE); LEUKOCYTES URINE NEGATIVE (NEGATIVE); NITRITE URINE NEGATIVE (NEGATIVE); PROTEIN URINE 600 mg/dL (NEGATIVE); TURBIDITY URINE CLEAR (CLEAR); UROBILINOGEN URINE NORMAL (NORMAL)
[2019-11-21 17:40] LABS: UR EPITHELIAL CELLS <10 /HPF (<10); URINE BACTERIA NEGATIVE /HPF; URINE RBC <10 /HPF (<10); URINE WBC <10 /HPF (<10)
[2019-11-21 17:51] LABS: ALBUMIN 4.2 g/dL (3.5-5.0); CALCIUM 9.3 mg/dL (8.8-10.2); POTASSIUM 3.5 mmol/L (3.5-5.1); TOTAL BILIRUBIN 0.3 mg/dL (0.20-1.00); TOTAL PROTEIN 8.2 g/dL (6.3-8.3)
[2019-11-21 17:58] LABS: INR 0.99; PROTIME 13.6 Seconds (11.0-16.0)
[2019-11-21 17:59] LABS: INFLUENZA A NEGATIVE (NEGATIVE); INFLUENZA B NEGATIVE (NEGATIVE)
[2019-11-21 17:59] LABS: PTT 38.2 Seconds (22.3-41.8)
--- NOTE | 2019-11-21 18:03 | EKG Report ---
Test Performed on : 11/21/2019 5:10:13 PM Test Reason : cp Blood Pressure : / mmHG Vent. Rate : 106 BPM Atrial Rate : 106 BPM P-R Int : 156 ms QRS Dur : 128 ms QT Int : 392 ms P-R-T Axes : 070 -70 033 degrees QTc Int : 520 ms Sinus tachycardia. 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
[2019-11-21] MEDS ORDERED: APRESOLINE IV ONE (18:14)
--- NOTE | 2019-11-21 18:24 | PROVIDER DOCUMENTATION ---
This chart was entered by Violeta Pinto Scribe, acting as scribe for Slim Paul MD. HPI-Chest Pain - General Source: patient - History of Present Illness-CP Location: reports: central Chest Pain Radiation: reports: no radiation Quality of Pain: reports: aching Severity in ED: mild Onset/Duration: 1 hour ago Timing: still present Context/Activities at Onset: reports: light activity Associated Symptoms: reports: nausea, shortness of breath, vomiting Nitro Today/Relief: 0.4 mg x 1, provided by EMS Similar Symptoms Previously?: No Recently Seen Here or By Another Healthcare Provider: No <Slim Paul - Last Filed: 11/21/19 18:16> <Angel Hill - Last Filed: 11/21/19 22:21> - General Stated Complaint: CHEST PAIN Time Seen by Provider: 11/21/19 17:11 Allergies/Adverse Reactions: Patient Allergies Allergy/AdvReac Type Severity Reaction Status Date / Time butalbital Allergy SWELLING Verified 11/21/19 17:42 Penicillins Allergy SWELLING Verified 11/21/19 17:42 Home Medications: Home Medication List Medication Instructions Recorded Confirmed Last Taken Type ATORVAstatin [Lipitor] 40 mg PO QHS 08/28/14 11/21/19 Unknown History Aspirin 81 mg PO DAILY 08/28/14 11/21/19 02/14/16 History LISINOpril [Prinivil] 40 mg PO DAILY 12/11/18 11/21/19 Unknown History - History of Present Illness-CP Nature of Presenting Problem: Patient is a 89 year old female who presents to the ED via EMS with chest pain. States nausea, vomiting and shortness of breath with chest pain. Reports symptoms started 1 hour ago. Denies having similar pain before. EMS states giving patient 1 nitro prior to arrival. (Slim Paul) Review of Systems - Adult - REVIEW OF SYSTEMS - ADULT Constitutional: reports: no symptoms reported Eyes: reports: no symptoms reported Ears, Nose, Mouth & Throat: reports: no symptoms reported Cardiovascular: reports: see HPI, chest pain. denies: irregular heart rate, palpitations Respiratory: reports: see HPI, shortness of breath. denies: cough, wheezing Gastrointestinal: reports: see HPI, nausea, vomiting. denies: abdominal pain Genitourinary: reports: no symptoms reported Musculoskeletal: reports: no symptoms reported Integumentary: reports: no symptoms reported Neurological: reports: no symptoms reported Psychiatric: reports: no symptoms reported Endocrine: reports: no symptoms reported Hematologic/Lymphatic: reports: no symptoms reported Allergic/Immunologic: reports: no symptoms reported All Other Systems: Reviewed and Negative <Slim Paul - Last Filed: 11/21/19 18:16> Past History - Adult - PAST MEDICAL HISTORY-ADULT Review of Records: reports: Old Records Reviewed, Nursing Assessment Review, Medications Reviewed, Social history reviewed & non-contributory. Major Childhood Illnesses: reports: denies history Cardiovascular: reports: HTN, hyperlipidemia Respiratory: reports: denies history Gastrointestinal: reports: GERD Obstetrical/Gynecological: reports: denies history Genitourinary: reports: denies history Musculoskeletal: reports: denies history Neurological: reports: denies history Psychiatric: reports: denies history Endocrine/Immune: reports: denies history Other Conditions: reports: denies history - PRIOR SURGERIES/PROCEDURES Surgical/Procedure History: reports: reviewed, not pertinent, other (lymph node removal right breast) - IMMUNIZATION STATUS Childhood Immunizations: See Nurse Assessment Flu Vaccine: See Nurse Assessment - FAMILY HISTORY Family History: reviewed, not pertinent - SOCIAL HISTORY Smoking: denies Substance Use: denies <Slim Paul - Last Filed: 11/21/19 18:16> Physical Exam-General - PHYSICAL EXAM-ADULT Initial Vital Signs Reviewed: Yes - CONSTITUTIONAL General Appearance: alert, mild distress, anxious. negative: lethargic - HEAD, EARS, NOSE, MOUTH & THROAT HENMT: normocephalic/atraumatic, moist mucous membranes. negative: angioedema - RESPIRATORY Respiratory: chest non-tender, lungs clear, normal breath sounds, increased rate . negative: rhonchi, wheezing - CARDIOVASCULAR Cardiovascular: no edema, tachycardia. negative: systolic murmur - GASTROINTESTINAL (ABDOMEN) Abdominal Exam: normal bowel sounds, non tender, soft. negative: rigid - MUSCULOSKELETAL Extremity: non-tender, normal inspection. negative: pedal edema Peripheral Pulses: radial (R): 2+, radial (L): 2+ - SKIN Integumentary: normal color, normal turgor, warm/dry. negative: diaphoresis - NEUROLOGIC Neurologic: grossly normal. negative: aphasia, facial droop - PSYCHIATRIC Psych/Mental Status: oriented x 3, anxious. negative: tearful <Slim Paul - Last Filed: 11/21/19 18:16> - HEART Score HEART Score: History: Moderately Suspicious HEART Score: ECG: Non-Specific Repolarization Disturbance/LBBB/PM HEART Score: Age: > or = 65 Years HEART Score: Risk Factors for Atherosclerotic Disease: 1 or 2 Risk Factors HEART Score: Troponin: < or = Normal Limit Total HEART Score:: 5 <Slim Paul - Last Filed: 11/21/19 18:16> Progress - PLAN OF CARE/RESULTS Result Diagrams: 11/21/19 17:20 11/21/19 17:20 - REASSESSMENT Reassessment #1 Time Reassessed: 18:21 Status: improving (Feels better after meds. BP 200/99. Patient had 2 SIRS criteria on arrival, lactate is only 2.1, no fever/ no leukocytosis. Awaiting CXR to r/o infiltrate. WIll hold off on fluids/antibiotics until CXR done. 2 hour troponin/EKG should be drawn at 1720.) - EKG 1 Time of EKG reading by physician:: 17:12 EKG Read and Signed by:: Slim Paul EKG Interpretation (*Must complete 3 of following elements*): Abnormal Rate: 106 Rhythm: sinus tachycardia Lloyd: left QRS: RBB, LVH AR Interval: normal Comments: NSSTTWC; prolonged QT - CHANGE OF SHIFT REPORT (ED Provider) 1 Report Given and Care Transferred to:: Dr. Hill Time of Transfer: 19:00 Items Pending: Labs (repeat troponinat 1920, D-Dimer), XRAY Results (CXR), Pain Control <Slim Paul - Last Filed: 11/21/19 18:16> - PLAN OF CARE/RESULTS Result Diagrams: 11/21/19 17:20 11/21/19 17:20 - REASSESSMENT Reassessment #2 Time Reassessed: 21:40 Status: improving - CONSULTS/PCP/HOSPITALIST Notification #1 *Consult/PCP/Hospitalist*: Dr Martinez Time Discussed: 21:40 Consult Disposition: other (advised Cardiology consult on phone and if cards recomends admission, advised admission or transfer) #2 Consult: Dr Garsia Time Discussed: 10:05 Consult Disposition: Admit (as pt is pain free advised admission, yohannesx.) <Angel HillVal - Last Filed: 11/21/19 22:21> - PLAN OF CARE/RESULTS Progress/Plan/Lab Results: Vital Signs - 8 hr 11/21/19 17:07 11/21/19 17:48 11/21/19 18:20 Temperature 97.6 F Pulse Rate 107 H 72 76 Respiratory Rate 26 H 12 14 Blood Pressure 269/138 201/95 200/88 O2 Sat by Pulse Oximetry 94 L 95 96 11/21/19 19:02 Temperature Pulse Rate 78 Respiratory Rate 18 Blood Pressure 149/62 O2 Sat by Pulse Oximetry 97 Laboratory Results - last 24 hr 11/21/19 11/21/19 11/21/19 17:20 17:20 17:20 WBC 6.38 RBC 5.23 Hgb 15.3 Hct 47.9 H MCV 91.6 MCH 29.3 MCHC 31.9 L RDW Std Deviation 14.5 Plt Count 268 MPV 12.0 H Immature Gran % (Auto) 0.3 Neut % (Auto) 59.5 Lymph % (Auto) 28.5 [place] % (Auto) 7.8 Eos % (Auto) 3.4 Baso % (Auto) 0.5 Immature Gran # (Auto) 0.02 Neut # (Auto) 3.79 Lymph # (Auto) 1.82 [place] # (Auto) 0.50 Eos # (Auto) 0.22 Baso # (Auto) 0.03 PT INR PTT (Actin FS) D-Dimer, Quantitative Sodium 143 Potassium 3.5 Chloride 104 Carbon Dioxide 25 Anion Gap 15 BUN 15 Creatinine 1.0 H Estimated GFR/1.73 m2 52 BUN/Creatinine Ratio 15 Glucose 132 H Calculated Osmolality 288 Calcium 9.3 Total Bilirubin 0.30 AST 18 ALT 12 Alkaline Phosphatase 138 H Creatine Kinase 92 Troponin T Ckq-B-Edoylmorvup Pept 515 H Total Protein 8.2 Albumin 4.2 Globulin 4.0 Albumin/Globulin Ratio 1.0 Plasma Lactate Urine Source Urine Color Urine Turbidity Urine pH Ur Specific [place] Urine Protein Ur Glucose (Stick) Ur Ketones (Stick) Urine Blood Urine Nitrite Urine Bilirubin Urobilinogen Dipstick Urine Leukocytes Urine WBC (Auto) Urine RBC (Auto) U Epithel Cells (Auto) Urine Bacteria (Auto) Influenza A (Rapid) Influenza B (Rapid) 11/21/19 11/21/19 11/21/19 17:20 17:20 17:20 WBC RBC Hgb Hct MCV MCH MCHC RDW Std Deviation Plt Count MPV Immature Gran % (Auto) Neut % (Auto) Lymph % (Auto) [place] % (Auto) Eos % (Auto) Baso % (Auto) Immature Gran # (Auto) Neut # (Auto) Lymph # (Auto) [place] # (Auto) Eos # (Auto) Baso # (Auto) PT 13.6 INR 0.99 PTT (Actin FS) 38.2 D-Dimer, Quantitative Sodium Potassium Chloride Carbon Dioxide Anion Gap BUN Creatinine Estimated GFR/1.73 m2 BUN/Creatinine Ratio Glucose Calculated Osmolality Calcium Total Bilirubin AST ALT Alkaline Phosphatase Creatine Kinase Troponin T < 0.010 Vvl-D-Iuhsjbrpwlp Pept Total Protein Albumin Globulin Albumin/Globulin Ratio Plasma Lactate 2.1 Urine Source Urine Color Urine Turbidity Urine pH Ur Specific [place] Urine Protein Ur Glucose (Stick) Ur Ketones (Stick) Urine Blood Urine Nitrite Urine Bilirubin Urobilinogen Dipstick Urine Leukocytes Urine WBC (Auto) Urine RBC (Auto) U Epithel Cells (Auto) Urine Bacteria (Auto) Influenza A (Rapid) Influenza B (Rapid) 11/21/19 11/21/19 11/21/19 17:20 17:25 17:30 WBC RBC Hgb Hct MCV MCH MCHC RDW Std Deviation Plt Count MPV Immature Gran % (Auto) Neut % (Auto) Lymph % (Auto) [place] % (Auto) Eos % (Auto) Baso % (Auto) Immature Gran # (Auto) Neut # (Auto) Lymph # (Auto) [place] # (Auto) Eos # (Auto) Baso # (Auto) PT INR PTT (Actin FS) D-Dimer, Quantitative 0.98 H Sodium Potassium Chloride Carbon Dioxide Anion Gap BUN Creatinine Estimated GFR/1.73 m2 BUN/Creatinine Ratio Glucose Calculated Osmolality Calcium Total Bilirubin AST ALT Alkaline Phosphatase Creatine Kinase Troponin T Rmf-T-Znjlepsikjv Pept Total Protein Albumin Globulin Albumin/Globulin Ratio Plasma Lactate Urine Source CATH Urine Color YELLOW Urine Turbidity CLEAR Urine pH 7.0 Ur Specific [place] 1.010 Urine Protein 600 A Ur Glucose (Stick) NEGATIVE Ur Ketones (Stick) NEGATIVE Urine Blood TRACE A Urine Nitrite NEGATIVE Urine Bilirubin NEGATIVE Urobilinogen Dipstick NORMAL Urine Leukocytes NEGATIVE Urine WBC (Auto) <10 Urine RBC (Auto) <10 U Epithel Cells (Auto) <10 Urine Bacteria (Auto) NEGATIVE Influenza A (Rapid) NEGATIVE Influenza B (Rapid) NEGATIVE 11/21/19 11/21/19 19:53 19:53 WBC RBC Hgb Hct MCV MCH MCHC RDW Std Deviation Plt Count MPV Immature Gran % (Auto) Neut % (Auto) Lymph % (Auto) [place] % (Auto) Eos % (Auto) Baso % (Auto) Immature Gran # (Auto) Neut # (Auto) Lymph # (Auto) [place] # (Auto) Eos # (Auto) Baso # (Auto) PT INR PTT (Actin FS) D-Dimer, Quantitative Sodium Potassium Chloride Carbon Dioxide Anion Gap BUN Creatinine Estimated GFR/1.73 m2 BUN/Creatinine Ratio Glucose Calculated Osmolality Calcium Total Bilirubin AST ALT Alkaline Phosphatase Creatine Kinase Troponin T 0.016 D Cjg-Q-Ywtwtwjurtc Pept Total Protein Albumin Globulin Albumin/Globulin Ratio Plasma Lactate 1.5 Urine Source Urine Color Urine Turbidity Urine pH Ur Specific [place] Urine Protein Ur Glucose (Stick) Ur Ketones (Stick) Urine Blood Urine Nitrite Urine Bilirubin Urobilinogen Dipstick Urine Leukocytes Urine WBC (Auto) Urine RBC (Auto) U Epithel Cells (Auto) Urine Bacteria (Auto) Influenza A (Rapid) Influenza B (Rapid) Orders Category Date Time Status Cardiac Monitoring DIRECTED Care 11/21/19 17:11 Active Monitor Blood Pressure ORDERED Care 11/21/19 17:15 Active Nursing- Obtain EKG once Care 11/21/19 19:20 Active Oxygen Therapy- ED Nursing DIRECTED Care 11/21/19 17:11 Active Saline Loc NOW Care 11/21/19 17:11 Active CHEST-PORTABLE [RAD] Stat Exams 11/21/19 18:07 Completed CTA [CT ANGIOGRAM THORAX] [CT] Stat Exams 11/21/19 19:02 Completed BLOOD CULTURE [BLDCUL] Stat Lab 11/21/19 17:20 Received CBC WITH ELECTRONIC DIFF [HEME] Stat Lab 11/21/19 17:20 Completed CK PROFILE [SP CHEM] Stat Lab 11/21/19 17:20 Completed COMPREHENSIVE METABOLIC PANEL [CHEM] Stat Lab 11/21/19 17:20 Completed D-DIMER [COAG] Stat Lab 11/21/19 17:[address] Stat Lab 11/21/19 17:30 Completed LACTATE, PLASMA [CHEM] Routine Lab 11/21/19 19:53 Completed LACTATE, PLASMA [CHEM] Routine Lab 11/21/19 23:20 Uncollected LACTATE, PLASMA [CHEM] Stat Lab 11/21/19 17:20 Completed PRO B-NATRIURETIC PEPTIDE Stat Lab 11/21/19 17:20 Completed PROTIME WITH INR [COAG] Stat Lab 11/21/19 17:20 Completed PTT [COAG] Stat Lab 11/21/19 17:20 Completed TROPONIN T Stat Lab 11/21/19 17:20 Completed TROPONIN T Stat Lab 11/21/19 19:53 Completed URINALYSIS W/POSS RFLX CULT [URINALYSIS] Stat Lab 11/21/19 17:25 Completed 0.9% Sodium Chloride Inj [Ns] 1,000 ml Med 11/21/19 17:13 Discontinued IV 999 mls/hr Aspirin Med 11/21/19 17:11 Discontinued 325 mg PO NOW ONE Enoxaparin 1 mg/kg [Lovenox 1 mg/kg] Med 11/21/19 22:16 Once 1 each SUBQ NOW ONE Hydralazine [Apresoline] Med 11/21/19 18:14 Discontinued 10 mg IV NOW ONE Labetalol Med 11/21/19 17:13 Discontinued 20 mg IV NOW ONE Morphine Med 11/21/19 17:13 Discontinued 4 mg IV NOW ONE Nitroglycerin Med 11/21/19 17:15 Discontinued 1 inch TOP NOW ONE Ondansetron [Zofran] Med 11/21/19 17:13 Discontinued 4 mg IV NOW ONE CP/SOB/Palp >45 yrs of Age Stat Oth 11/21/19 17:11 Ordered EKG [EKG] Stat Ther 11/21/19 17:11 Draft EKG [EKG] Stat Ther 11/21/19 19:20 Ordered Departure - Departure Certified Medical Emergency: Emergent - Critical Care Note This patient required my direct & personal management of CC.: Yes Total Time (mins): 40 Critical Care Statement: This patient required my direct personal management to treat or rule out processes, the absence of which, could potentiallly result in sudden, clinically significant life or limb threatening deterioration. <Slim Paul - Last Filed: 11/21/19 18:16> - Departure Date of Disposition Decision: 11/21/19 Time of Disposition Decision: 22:20 <Angel Hill - Last Filed: 11/21/19 22:21> - Departure DIAGNOSIS: Chest pain Disposition: ADMITTED INPATIENT 09 Condition: Stable Referrals and Follow-Ups: Cm Martinez MD [Primary Care Provider] - Attestation - Physician/ JN Attestation The physician spent face to face time with patient:: Yes Advanced Practice Provider documentation review:: Supervising physician onsite and consulted in the evaluation and care of this patient. The physician did have a face to face encounter with the patient. <Slim Paul - Last Filed: 11/21/19 18:16> - Physician/ JN Attestation Patient care was provided by Advanced Practice Provider:: No <Angel Hill - Last Filed: 11/21/19 22:21> This chart was documented by the indicated scribe, (Violeta Pinto Scribe) and accurately reflects the services I performed and decisions made by Beverly burk Kent A., MD, as attested by the provider's signature.
--- NOTE | 2019-11-21 19:21 | Diag Imaging Result Doc PS360 ---
CHEST-PORTABLE - 11/21/2019 INDICATION: CP COMPARISON: 12/14/2018 FINDINGS: Stable cardiomegaly. There is mild pulmonary vascular congestion. There may be some mild pulmonary edema. No pneumothorax or pleural effusion. IMPRESSION: Mild congestive heart failure. Electronically signed by Franky Day 11/21/2019 7:19 PM
--- NOTE | 2019-11-21 21:41 | Diag Imaging Result Doc PS360 ---
CT ANGIOGRAM THORAX - 11/21/2019 INDICATION: cp, rule out dissection TECHNIQUE: Axial CT images were obtained after administering intravenous contrast. Three-dimensional angiographic images were generated. COMPARISON: 10/13/2019 FINDINGS: There is mild cardiomegaly. No pericardial effusion. There is moderate scattered disease throughout the thoracic aorta. No aneurysm or dissection. No stenosis. Great vessels are normal. No evidence of pulmonary embolism. The lungs are grossly clear. There are several cysts in the kidneys. Otherwise upper abdominal images appear normal. There are advanced degenerative changes of the spine and both shoulders. No acute or suspicious bony lesion. IMPRESSION: Mild cardiomegaly. No acute disease. This exam was performed using automated exposure control, adjustment of mA or kV according to patient size, and/or use of iterative reconstruction technique Electronically signed by Franky Day 11/21/2019 9:39 PM
[2019-11-21] MEDS ORDERED: LOVENOX 1 MG/KG SUBQ ONE (22:16)
[2019-11-21] MEDS ORDERED: LOVENOX SUBQ ONE (22:18)
--- NOTE | 2019-11-21 22:21 | ED EKG INTERP ---
This chart was entered by Leandra Rausch Scribe, acting as scribe for Angel Hill MD. EKG Interpretation - EKG Time of EKG reading by physician:: 20:02 EKG Read and Signed by:: Angel Hill EKG Interpretation (*Must complete 3 of following elements*): Abnormal Rate: 84 (left anterior fscicular block ) Rhythm: NSR QRS: RBB, other (poor r wave progression in lateral leads.) VA Interval: normal ST Wave: normal Prior EKG Comparison: changes noted Comments: possible lateral infarct, age undetermined Attestation - Physician/ JN Attestation Patient care was provided by Advanced Practice Provider:: No The physician spent face to face time with patient:: Yes Advanced Practice Provider documentation review:: Supervising physician onsite and consulted in the evaluation and care of this patient. The physician did have a face to face encounter with the patient. This chart was documented by the indicated scribe, (Leandra Rausch Scribe) and accurately reflects the services I performed and decisions made by , Angel Hill MD, as attested by the provider's signature.
--- NOTE | 2019-11-22 00:32 | EKG Report ---
Test Performed on : 11/21/2019 8:02:15 PM Test Reason : repeat for CP Blood Pressure : / mmHG Vent. Rate : 084 BPM Atrial Rate : 084 BPM P-R Int : 156 ms QRS Dur : 136 ms QT Int : 444 ms P-R-T Axes : 064 -70 009 degrees QTc Int : 524 ms Normal sinus rhythm. Right bundle branch block Left anterior fascicular block Bifascicular block Voltage criteria for left ventricular hypertrophy Possible Lateral infarct (cited on or before 10-DEC-2018) Abnormal ECG When compared with ECG of 21-NOV-2019 17:10, (Unconfirmed) Questionable change in initial forces of Anterolateral leads Unconfirmed Result
--- NOTE | 2019-11-22 11:33 | EKG Report ---
Test Performed on : 11/22/2019 11:14:32 AM Test Reason : EMBOLI Blood Pressure : / mmHG Vent. Rate : 073 BPM Atrial Rate : 073 BPM P-R Int : 148 ms QRS Dur : 132 ms QT Int : 468 ms P-R-T Axes : 051 -73 -09 degrees QTc Int : 515 ms Normal sinus rhythm. Right bundle branch block Left anterior fascicular block Bifascicular block Voltage criteria for left ventricular hypertrophy Abnormal ECG When compared with ECG of 21-NOV-2019 20:02, (Unconfirmed) Borderline criteria for Lateral infarct are no longer present Nonspecific T wave abnormality now evident in Lateral leads Confirmed by Cm Martinez MD ([id number]) on 12/07/2019 1:53:03 AM
--- NOTE | 2019-11-22 12:25 | PROGRESS NOTE ---
DATE: 11/22/2019 This 89-year-old female was admitted to the hospital last night with the history of having had some chest pain. She was seen in the E.R. and she had a CTA of the thorax which showed mild cardiomegaly, otherwise negative. CT of the chest showed mild congestive heart failure. On her laboratory data electrolytes were normal. BUN was 15, creatinine 1, GFR 52, and glucose 132. Liver functions were normal. Initial CK was 92. Initial troponin was 0.01, subsequent troponin was 0.016 with a CK of 126, and today it is 0.190. She is not experiencing any chest pain, just simply hungry. We are going to call Dr. Alvarenga and see how he feels about her status as far as investigation and treatment. cc: Cm Martinez MD
--- NOTE | 2019-11-22 12:35 | Diag Imaging Result Doc PS360 ---
US GB < RUQ (LIMITED) - 11/22/2019 INDICATION: PAIN TECHNIQUE: COMPARISON: None FINDINGS: Liver, gallbladder, pancreas, and right kidney are normal. Common bile duct measures 4 mm. Aorta, IVC, and main portal vein are patent. IMPRESSION: Negative exam. Electronically signed by Franky Day 11/22/2019 12:33 PM
[2019-11-22] MEDS: NITROGLYCERIN TOP SCH ×2 (15:52→20:38)
--- NOTE | 2019-11-22 16:05 | CARDIOLOGY CONSULTATION ---
DATE: 11/22/2019 HISTORY: This 89-year-old -[place] lady was admitted with chest pain. Has non-Q-wave myocardial infarction. Ms. Shannon Proctor is an 89-year-old -[place] lady who has history of hypertension, hyperlipidemia, dementia, and arthritis. She was with her family and had central retrosternal chest discomfort which he describes as aching in character. It lasted for about an hour. Came to the emergency room and was given nitroglycerin, symptomatically she has improved. She was admitted. Her admission electrocardiogram revealed normal sinus rhythm, right bundle branch block, left anterior nitesh fascicular block. She has abnormal troponin suggestive of non-Q-wave myocardial infarction. At the time of my examination the patient was pain free. Prior to this, she has not had any previous known cardiac history. She has been doing reasonably well. She uses a walker. She has had history of recent falls as well but no jake syncopal episode. She has some arthritis as well. REVIEW OF SYSTEMS: A 14-point review of systems was done. GI System: There is no history of nausea, vomiting, diarrhea. There is no history of hematemesis or melena. Central nervous system: No focal weakness to suggest a CVA or TIA. System: There is no dysuria or hematuria. PAST MEDICAL HISTORY: 1. Hypertension. 2. Hyperlipidemia. 3. Dementia. 4. Arthritis. ALLERGIES: She is allergic to penicillin and butalbital. SOCIAL HISTORY: She does not smoke. Does not drink. PHYSICAL EXAMINATION: Vital Signs: Blood pressure was 142/66. Cardiovascular: Normal jugular venous pressure. First and second heart sounds were heard. There was ejection systolic murmur. Central Nervous System: Alert and oriented, was moving all four extremities. Extremities: Examination revealed trace edema. Chest: Normal air entry. There were no crepitations or rhonchi. Abdomen: Soft, nontender. There was no guarding or rigidity. Bowel sounds were heard. IMAGING: CT scan of her chest was done which revealed no acute disease. Mild cardiomegaly. LABORATORY EXAMINATION: Sodium 143, potassium 3.5, BUN 15, creatinine 1.0. ProBNP 515. Cardiac enzymes: Troponin, the first set was normal at 0.010, subsequently troponins were abnormal at 0.016 and 0.190. ASSESSMENT AND PLAN: 1. Ms. Shannon Proctor is an 89-year-old Afro-[place] lady with history of mild dementia, hypertension, hyperlipidemia, and arthritis. She is admitted with chest pain and has a non-Q- wave myocardial infarction. Had a detailed discussion with the patient and over the phone I had discussed with her daughter and grandson. Given her age and dementia, discussed other options. Recommended medical management unless symptoms worsen. Patient's family would also like her to be managed medically. In addition to aspirin I will add beta-blockers to her medical regimen. We will put her on Toprol 25 mg twice daily. Given this, I will also decrease the dosage of lisinopril. 2. She has an ejection systolic murmur. May well have aortic valve disease. We will get an echocardiogram to reassess cardiac and valvular function. 3. Hyperlipidemia. Continue with atorvastatin. I will put her on nitroglycerin paste as well. 4. Thank you for the consult. We will follow hospital course. cc: MD Cm Moore MD
[2019-11-22] MEDS: LOPRESSOR PO SCH (20:38)
[2019-11-22] MEDS: LIPITOR PO SCH (20:38)
[2019-11-23] MEDS: NITROGLYCERIN TOP SCH ×2 (04:22→18:50)
[2019-11-23] MEDS ORDERED: PRINIVIL PO SCH (09:00)
[2019-11-23] MEDS ORDERED: NORVASC PO ONE (09:22)
[2019-11-23] MEDS ORDERED: NITROGLYCERIN SL PRN (10:15)
--- NOTE | 2019-11-23 10:29 | PROGRESS NOTE ---
DATE: 11/23/2019 An 89-year-old lady admitted with chest pains with some positive enzymes and no significant EKG changes, background history of hypertension, dyslipidemia, and obesity. Today, she is declining any chest pain. She had some nitroglycerin paste on. Blood pressure has not been particularly well-controlled so we are going stop the nitroglycerin paste. She is not having any chest pain on her nitroglycerin, adding Norvasc 5 to the regimen, which includes metoprolol. We will repeat her enzymes to see if they is still a minor leak going on. She was seen in consult with Dr. Alvarenga, who thinks expectant care and just noninvasive treatment is the way to go. I think the family per his impression prefers to go that way as well. She had an ultrasound of her belly done yesterday, no significant disease was found. She had an echocardiogram or is in the process of getting an echocardiogram today. Her EF is 45%. She has got moderate aortic stenosis and regurgitation. Blood pressure is an ongoing issue. cc: Cm Martinez MD MTDD
[2019-11-23] MEDS: LOPRESSOR PO SCH (10:33)
[2019-11-23] MEDS: ASPIRIN PO SCH (10:35)
[2019-11-23] MEDS: PRINIVIL PO SCH (10:36)
[2019-11-23 12:25] LABS: CK INDEX 1.4 (0.0-2.5); CK-MB 3.03 ng/mL (0.0-5.0)
--- NOTE | 2019-11-23 14:53 | ECHO REPORT ---
ORDER DATE: 11/23/2019 INTERPRETING PHYSICIAN: Roberto Alvarenga MD. ECHOCARDIOGRAPHIC MEASUREMENTS: 1. Interventricular septum 1.5. 2. Left ventricular posterior wall 1.4. 3. Diastolic diameter 5.0. 4. Right ventricle 4. 5. Left atrium 4.5. FINDINGS: 1. Aortic valve leaflets are trileaflet, calcified. 2. Mitral valve was normal. There is mitral annular calcification. 3. Tricuspid valve was normal. 4. Normal left ventricular cavity size. Estimated ejection fraction of 55 to 60 percent. There is concentric left ventricular hypertrophy. 5. There is biatrial enlargement. 6. There is mild mitral regurgitation. 7. There is diastolic dysfunction grade 2. 8. There is mild tricuspid regurgitation. Peak velocity across the tricuspid valve was 2.8 m/sec. Pulmonary artery systolic pressure of 41 mmHg. 9. Peak velocity across the aortic valve was 3 m/sec with a mean gradient of 21 mmHg. Aortic valve area of 1.2 cm/2. There is moderate aortic stenosis associated with [id number] aortic regurgitation. 10. There is no pericardial effusion or obvious intracardiac mass or thrombus seen. cc: MD Cm Moore MD
[2019-11-23] MEDS: LIPITOR PO SCH (20:32)
[2019-11-24] MEDS: PRINIVIL PO SCH ×2 (04:25→08:31)
[2019-11-24] MEDS: LOPRESSOR PO SCH ×2 (08:31→20:53)
[2019-11-24] MEDS: ASPIRIN PO SCH (08:31)
[2019-11-24] MEDS ORDERED: LEXISCAN ONE (14:10)
--- NOTE | 2019-11-24 16:56 | Diag Imaging Result Document ---
PROCEDURE NAME: MYOCARDIAL PERF SCAN, STR/REST - 11/24/2019 INDICATION: Chest pain. PROCEDURES PERFORMED: 1. Lexiscan stress (results dictated separately by primary physician) 2. One-day stress rest myocardial perfusion imaging. (rest dose 14.1 millicuries, stress dose 43.0 millicuries) FINDINGS: 1. Lexiscan stress results dictated separately. 2. TID ratio is 1.20. There is not clear evidence of transient ischemic dilatation on review of the splash images. 3. There is a significant amount of abnormal extracardiac uptake which looks like infiltration in the patient's IV. It is present in both rest and stress images in the left antecubital fossa. In addition, this study was made extremely difficult by the patient not being able to put their arms over their head. 4. Perfusion imaging is difficult. There is reversibility in the inferior wall in the mid portion that is very narrow and small. It is mild in intensity. Could possibly be ischemia but again with the compromised nature of this testing with the patient's arm down as well as the significant radiotracer infiltration in the left upper extremity this defect is difficult to determine the etiology. 5. There is a preserved ejection fraction of 65%. The end-diastolic volume is 134, end-systolic volume is 47. cc: MD Cm Bennett MD
[2019-11-24] MEDS: LIPITOR PO SCH (20:53)
[2019-11-25] MEDS: ASPIRIN PO SCH (08:13)
[2019-11-25] MEDS: LOPRESSOR PO SCH ×2 (08:13→20:33)
[2019-11-25] MEDS: PRINIVIL PO SCH (08:13)
[2019-11-25] MEDS ORDERED: HYDROCHLOROTHIAZIDE PO ONE (11:28)
[2019-11-25] MEDS ORDERED: ISMO PO ONE (11:31)
--- NOTE | 2019-11-25 18:04 | PROGRESS NOTE ---
DATE: 11/24/2019 We did a Lexiscan on her and she tolerated it well. However, at the conclusion, she started having some chest pain and nausea but that quickly resolved. Her pressures are as follows: OBJECTIVE: Temperature 98 degrees, pulse 79, respiratory rate 20, blood pressure 215/73, oxygen saturation good on 2 liters. Cardiac markers have continued to drop. cc: Cm Martinez MD
--- NOTE | 2019-11-25 18:06 | PROGRESS NOTE ---
DATE: 11/25/2019 Her blood pressures are better, 151/50. We added some isosorbide, some hydrochlorothiazide to her regimen and we will probably let her go home in the morning. We are going to do another set of enzymes just to sort of see. The family wants the patient to continue to live by herself at home, so we have intentions on discharging her in the a.m.. -6 cc: Cm Martinez MD
[2019-11-25] MEDS: LIPITOR PO SCH (20:33)
[2019-11-25] MEDS ORDERED: AFRIN NASAL SPRAY NAS ONE (22:41)
[2019-11-26 00:20] LABS: BASO# 0.05 X1000 (0.0-0.2); BASO% 0.7 % (0.0-0.8); EOS# 0.37 X1000 (0.0-0.7); EOS% 4.9 % (0.0-10.0); IMM GRAN# 0.02 X1000 (0.0-0.04); IMM GRAN% 0.3 % (0.0-0.5); LYMPH# 1.04 X1000 (1.2-3.4); LYMPH% 13.7 % (20.5-51.1); MCH 28.9 PG (27-31); MCV 96.4 FL (81-99); MONO# 0.56 X1000 (0.11-0.59); MONO% 7.4 % (1.7-9.3); MPV 11.6 FL (7.4-10.4); NEUT# 5.54 X1000 (1.4-6.5); PLT 215 X1000 (130-400); RBC 4.15 XMIL (4.2-5.4); RDW 14.3 % (11.5-14.5); WBC 7.58 X1000 (4.8-10.8)
[2019-11-26 00:27] LABS: ALBUMIN 3.6 g/dL (3.5-5.0); CALCIUM 8.7 mg/dL (8.8-10.2); CREATININE 1.1 mg/dL (0.5-0.9); POTASSIUM 4.1 mmol/L (3.5-5.1); TOTAL BILIRUBIN 0.7 mg/dL (0.20-1.00)
[2019-11-26 00:33] LABS: INR 1.05; PROTIME 14.2 Seconds (11.0-16.0)
[2019-11-26] MEDS: TYLENOL WITH CODEINE #3 PO PRN ×2 (01:03→13:41)
[2019-11-26] MEDS: LOPRESSOR PO SCH ×2 (10:36→20:36)
[2019-11-26] MEDS: ASPIRIN PO SCH (10:36)
[2019-11-26] MEDS: PRINIVIL PO SCH (10:36)
[2019-11-26 13:11] LABS: BASO# 0.04 X1000 (0.0-0.2); BASO% 0.6 % (0.0-0.8); EOS# 0.24 X1000 (0.0-0.7); EOS% 3.5 % (0.0-10.0); HEMOGLOBIN 11.9 g/dL (12.0-16.0); LYMPH# 0.81 X1000 (1.2-3.4); LYMPH% 11.8 % (20.5-51.1); MCH 29.3 PG (27-31); MCHC 30.5 g/dL (33-37); MCV 96.1 FL (81-99); MONO# 0.62 X1000 (0.11-0.59); NEUT# 5.18 X1000 (1.4-6.5); NEUT% 75.1 % (42.2-75.2); PLT 193 X1000 (130-400); RBC 4.06 XMIL (4.2-5.4); RDW 14.1 % (11.5-14.5); WBC 6.89 X1000 (4.8-10.8)
[2019-11-26 13:54] LABS: INR 1.08; PROTIME 14.6 Seconds (11.0-16.0)
[2019-11-26 13:55] LABS: PTT 40.5 Seconds (22.3-41.8)
[2019-11-26] MEDS: LIPITOR PO SCH (20:36)
[2019-11-27] MEDS: ASPIRIN PO SCH (08:54)
[2019-11-27] MEDS: LOPRESSOR PO SCH (08:54)
[2019-11-27] MEDS: PRINIVIL PO SCH (08:54)
[2019-11-27] MEDS ORDERED: ISMO PO SCH (09:00)
[2019-11-27] MEDS ORDERED: HYDROCHLOROTHIAZIDE PO SCH (09:00)
[2019-11-27 15:10] VITALS: BP 142/35
--- NOTE | 2019-11-27 19:24 | PROGRESS NOTE ---
DATE: 11/27/2019 SUBJECTIVE: She has been doing better. She has no specific complaints. OBJECTIVE: Vital signs: She is afebrile, pulse is 61, respirations 16, blood pressure 113/38, O2 saturation 94% on room air, subsequently 98% on room air. Nose: Is no longer bleeding. PLAN: We are planning on sending her home to see how she does and then equip the house with whatever she might need or send her to rehab. cc: Cm Martinez MD
--- NOTE | 2019-11-27 19:31 | PROGRESS NOTE ---
DATE: 11/26/2019 SUBJECTIVE: She had started spontaneously bleeding from her left naris during the night. Pressure did not affect it in any way. We ended up putting a rhino rocket in her nose and with compression it ultimately stopped. This has not been a habitual problem. She is not on any blood thinners of any significance. OBJECTIVE: Vital signs: Temperature 98.6, pulse 67, respiratory rate 22, blood pressure 193/58, she is on 2L O2. PLAN: We are going to probably take the rhino rocket out on the evening of 11/25/2019. cc: Cm Martinez MD
--- NOTE | 2019-12-16 11:46 | DISCHARGE SUMMARY ---
ADMISSION DATE: 11/24/2019 DISCHARGE DATE: 11/27/2019 HISTORY OF PRESENT ILLNESS: This is an 89-year-old female who presented with chest pain and had a non-Q-wave AL with a history of significant elevated blood pressure on arrival. She has some background dementia. But while she was hospitalized, her pain resolved fairly promptly. She was on Lipitor, aspirin and lisinopril, and she had a spontaneous nosebleed that took a couple of days with noninvasive therapy to stop the bleeding. Because of her age and her background and mental status, we elected to increase her Toprol for her blood pressure and control of her heart conditions. She was seen by Dr. Alvarenga and on 11/21/2019, initially she had a CTA that was negative other than mild cardiomegaly. She had an echocardiogram done by Dr. Alvarenga which showed moderate aortic stenosis and mild to moderate mitral regurgitation, left concentric ventricular hypertrophy, biatrial enlargement, EF of 55% to 60%. She had a myocardial perfusion scan which showed preserved ejection fraction of 65%. Effusion imaging was difficult. There was reversibility in the inferior wall in the midportion that is very narrow and small. It is mild in intensity. It could possibly be ischemia, but again, with the compromised nature of this test, the patient's arm down as well as significant radiotracer infiltration of the left upper extremity, this defect is difficult to determine the etiology. So we elected to try to control her symptoms with the addition of the medications during hospital stay. She was given isosorbide 20 mg b.i.d., hydrochlorothiazide 25, amlodipine 5, lisinopril 20, atorvastatin 40. She was on prophylactic enoxaparin 1 mg/kg and thereafter had a bleeding issue, but that finally stopped. We discharged her on 81 of aspirin, 40 of atorvastatin, 20 of Lipitor, 25 of metoprolol and hydrochlorothiazide 25. Return home and return to the office in a couple of days. cc: Cm Martinez MD
--- NOTE | 2019-12-16 11:59 | HISTORY AND PHYSICAL ---
HISTORY OF PRESENT ILLNESS: This patient presented to the Emergency Room complaining of chest pain centrally located in her chest that is described as an aching associated with some light activity, some nausea, some shortness of breath, and some vomiting and en route was given nitro and that seemed to help. Denies similar symptoms. These symptoms all started an hour prior to arrival. Denies any similarity in the past. She had an EKG which showed sinus tachycardia, otherwise negative. Her initial data revealed a heart score of 5. She had a normal comp with a baseline blood sugar of 132 and creatinine of 1. CBC was normal except hematocrit was 47.9. EKG as said showed sinus tachycardia and maybe a left axis deviation, right bundle branch, and nonspecific ST segment changes. Her temperature when she arrived was 97.6, pulse 107, and respirations 26. Blood pressure reportedly was 269/138. O2 saturation was 94%. Subsequently, while she was here in the E.R. her blood pressure got down to 149/62, pulse was 78, respirations 18, and O2 saturation was 97. It was felt that she needed to be observed so she was placed in the hospital. ALLERGIES: She has some allergies to butalbital and penicillin. MEDICATIONS: Include: Atorvastatin 40 mg, aspirin 81 mg, and lisinopril 20 mg, REVIEW OF SYSTEMS: Constitutional: She denies any general weight loss, fever, chills, or night sweats. Endo: She denies any thyroid disease or diabetes. Chest: Nonsmoker. No significant COPD, asthma, pneumonia, or bronchitis. GI: No nausea, vomiting, diarrhea, constipation, bloody or black tarry stools, reflux, GERD, or dysphagia. : No dysuria, hematuria, polyuria, or pyuria. Neurological: No focal neurological signs. No migraines. No history of stroke. PAST MEDICAL HISTORY: She has had a history of hypertension and obesity. PAST SURGICAL HISTORY: She denies any significant surgeries. She was treated for a period of time and virtually of her numbers returned to normal. She was given 81 mg of aspirin, 25 mg of hydrochlorothiazide, 20 mg of lisinopril, 25 mg of metoprolol, and 20 mg of isosorbide. At the time of admission she was feeling much better. She had flu swabs that were negative and a urine that was negative. She had a D-dimer of 0.98. CBCs were all normal. She was admitted on [place], 11/21/2019. Her initial troponins were negative but subsequent troponins went up to 0.06 and then subsequently went up to 0.190 and 0.148. ProBNP was 515. Her urine function was okay. So, she was admitted to rule out ischemic heart disease and for blood pressure control. She was seen by Cardiology on 11/22/2019. She was seen by Dr. Alvarenga and he thought she was admitted with chest pain and has a non-Q-wave myocardial infarction based on her enzymes and because of her age Dr. Alvarenga consulted with the family and they thought medical therapy was the way to go. So, the addition of aspirin was recommended and a beta ibis to her regimen. We will put her on Toprol 25 mg twice daily and decrease the lisinopril. She had a CAT scan of her chest done while she was in the hospital that showed mild cardiomegaly. So, she was admitted with hypertension, hyperlipidemia, dementia, and arthritis. So, she had just an enzymatic TX and we admitted her to the hospital on 11/21/2019. cc: Cm Martinez MD
== END 2019-11-27 18:37 | disposition home or self-care (01) | DRG 281 ==
LOC: P.MEDSURG 17:02 → P.ED 17:02
PROVIDERS: ADMIT Internal Medicine; ATTEND Internal Medicine